=== PATIENT | male | born 1975 | race Caucasian/White ===

== ENCOUNTER 2018-05-05 10:35 | Inpatient (IN) | payer OTHER ==
[2018-05-05 12:30] LABS: ADD MAN DIFF? NO
[2018-05-05 12:35] LABS: WHITE BLOOD COUNT 5.2 10^3/ul (4.8-10.8)
[2018-05-05 12:35] LABS: ABNORMAL IP MESSAGE 1; BASOPHIL # 0.1 10^3/ul (0.0-0.1); EOSINOPHILS # 0.2 10^3/ul (0.0-0.5); EOSINOPHILS % 3.4 % (0.0-7.0); HEMATOCRIT 23.8 % (42.0-52.0); LYMPHOCYTES # 1.4 10^3/ul (0.8-2.9); LYMPHOCYTES % 27.6 % (15.0-51.0); MEAN CORPUSCULAR HEMOGLOBIN 20.7 pg (29.0-33.0); MEAN CORPUSCULAR HGB CONC 28.2 g/dl (32.0-37.0); MEAN CORPUSCULAR VOLUME 73.7 fl (82.0-101.0); MEAN PLATELET VOLUME 9.9 fl (7.4-10.4); MONOCYTE # 0.5 10^3/ul (0.3-0.9); MONOCYTES % 9.8 % (0.0-11.0); NEUTROPHILS % 57.6 % (39.0-77.0); PLATELET COUNT 287 10^3/UL (140-415); POSITIVE DIFF @See below; RED BLOOD COUNT 3.23 10^6/ul (4.70-6.10); RED CELL DISTRIBUTION WIDTH 17.4 % (11.5-14.5)
[2018-05-05 12:44] LABS: HEMOGLOBIN 6.7 g/dl (14.0-18.0)
[2018-05-05 12:45] LABS: PATH REVIEW? YES
[2018-05-05 12:52] LABS: PARTIAL THROMBOPLASTIN TIME 24.5 Sec (25.0-35.0)
[2018-05-05 12:55] LABS: INR 0.95; PROTIME 12.8 Sec (11.9-14.9)
[2018-05-05 12:57] LABS: ALANINE AMINOTRANSFERASE 94 IU/L (13-69); ALBUMIN 4.1 g/dl (3.3-4.9); ALBUMIN/GLOBULIN RATIO 1.32; ALKALINE PHOSPHATASE 79 IU/L (42-121); ANION GAP 14 (8-16); ASPARTATE AMINO TRANSFERASE 56 IU/L (15-46); BILIRUBIN,INDIRECT 0.3 mg/dl (0-1.1); BILIRUBIN,TOTAL 0.3 mg/dl (0.2-1.3); BLOOD UREA NITROGEN 19 mg/dl (7-20); CARBON DIOXIDE 27 mmol/L (21-31); CHLORIDE 104 mmol/L (97-110); CREATININE 0.96 mg/dl (0.61-1.24); GLUCOSE 116 mg/dl (70-220); POTASSIUM 3.7 mmol/L (3.5-5.1); SODIUM 141 mmol/L (135-144); TOTAL PROTEIN 7.2 g/dl (6.1-8.1)
[2018-05-05 13:08] LABS: TROPONIN-I < 0.010 ng/ml (0.000-0.120)
[2018-05-05 13:22] LABS: ANISOCYTOSIS 3+ (0-0); BAND NEUTROPHILS #M 0.1 10^3/ul (0.0-0.6); BAND NEUTROPHILS % (M) 2 % (0-4); BASOPHILS % (M) 1 % (0-2); EOSINOPHILS % (M) 4 % (0-7); GIANT THROMBO% (M) 3 % (0-0); HYPOCHROMASIA 1+ (0-0); LYMPHOCYTES #M 1.1 10^3/ul (0.8-2.9); LYMPHOCYTES % (M) 22 % (15-51); MICROCYTOSIS 3+ (0-0); MONOCYTE #M 0.4 10^3/ul (0.3-0.9); MONOCYTES % (M) 9 % (0-11); PLATELET ESTIMATE NORMAL; POIKILOCYTOSIS 2+ (0-0); POLYCHROMASIA 3+ (0-0); RBC MORPHOLOGY COMMENT @See below; SEG NEUT #M 3.2 10^3/ul (1.6-7.5); SEGMENTED NEUTROPHILS (M) % 62 % (39-77); SMUDGE%M 1 % (0-0); WBC MORPHOLOGY COMMENT @See below
[2018-05-05] MEDS: IOHEXOL 300MG/ML 150 ML BTL (13:30)
[2018-05-05] MEDS: SOD CHLORIDE 0.9% 100 ML (13:30)
[2018-05-05] MEDS ORDERED: ONDANSETRON 4 MG INJ IV (15:30)
[2018-05-05] MEDS ORDERED: ACETAMINOPHEN 325 MG TAB PO (15:30)
[2018-05-05 15:38] LABS: IMMEDIATE SPIN CROSSMATCH 1 2
[2018-05-05] MEDS: BISACODYL (EC) 5 MG TAB PO (15:47)
[2018-05-05] MEDS ORDERED: NACL 0.9% 3 ML SYG IV (16:00)
[2018-05-05 16:26] LABS: IRON 29 ug/dl (35-150)
[2018-05-05 16:35] LABS: % IRON SATURATION 5 % SAT (22-52); TOTAL IRON BINDING CAPACITY 589 ug/dl (241-421)
[2018-05-05 17:02] LABS: FERRITIN 5.6 ng/ml (17.9-464.0)
[2018-05-05] MEDS: POLYETHYLENE GLYCOL 3350 119 GM POWDER PO (23:03)
[2018-05-05] MEDS: MAGNESIUM CITRATE 300 ML BTL PO (23:03)
[2018-05-06 05:24] LABS: ADD MAN DIFF? NO
[2018-05-06 05:30] LABS: BASOPHIL # 0.1 10^3/ul (0.0-0.1); BASOPHILS % 1.2 % (0.0-2.0); EOSINOPHILS # 0.2 10^3/ul (0.0-0.5); EOSINOPHILS % 4.5 % (0.0-7.0); HEMATOCRIT 28.6 % (42.0-52.0); HEMOGLOBIN 8.4 g/dl (14.0-18.0); LYMPHOCYTES # 1.7 10^3/ul (0.8-2.9); LYMPHOCYTES % 33.9 % (15.0-51.0); MEAN CORPUSCULAR HEMOGLOBIN 22.6 pg (29.0-33.0); MEAN CORPUSCULAR HGB CONC 29.4 g/dl (32.0-37.0); MEAN CORPUSCULAR VOLUME 76.9 fl (82.0-101.0); MEAN PLATELET VOLUME 10.6 fl (7.4-10.4); MONOCYTE # 0.5 10^3/ul (0.3-0.9); MONOCYTES % 9.1 % (0.0-11.0); NEUTROPHIL # 2.6 10^3/ul (1.6-7.5); NEUTROPHILS % 50.9 % (39.0-77.0); PLATELET COUNT 292 10^3/UL (140-415); RED BLOOD COUNT 3.72 10^6/ul (4.70-6.10); RED CELL DISTRIBUTION WIDTH 19.2 % (11.5-14.5)
[2018-05-06 05:30] LABS: WHITE BLOOD COUNT 5.1 10^3/ul (4.8-10.8)
[2018-05-06 05:49] LABS: ALANINE AMINOTRANSFERASE 99 IU/L (13-69); ALBUMIN 3.7 g/dl (3.3-4.9); ALBUMIN/GLOBULIN RATIO 1.15; ALKALINE PHOSPHATASE 78 IU/L (42-121); ANION GAP 10 (8-16); ASPARTATE AMINO TRANSFERASE 72 IU/L (15-46); BILIRUBIN,INDIRECT 0.6 mg/dl (0-1.1); BILIRUBIN,TOTAL 0.6 mg/dl (0.2-1.3); BLOOD UREA NITROGEN 16 mg/dl (7-20); CALCIUM 8.9 mg/dl (8.4-10.2); CARBON DIOXIDE 28 mmol/L (21-31); CHLORIDE 106 mmol/L (97-110); CREATININE 0.83 mg/dl (0.61-1.24); GLUCOSE 86 mg/dl (70-220); POTASSIUM 4.1 mmol/L (3.5-5.1); SODIUM 140 mmol/L (135-144); TOTAL PROTEIN 6.9 g/dl (6.1-8.1)
[2018-05-06 05:53] LABS: CHOL/HDL RATIO 4.4 RATIO; HDL CHOLESTEROL 39 mg/dl (27-67); LDL CHOLESTEROL,CALCULATED 103 mg/dl; TRIGLYCERIDES 162 mg/dl (0-149)
[2018-05-06 05:53] LABS: CHOLESTEROL 174 mg/dl (100-200)
[2018-05-06] MEDS: PANTOPRAZOLE 40 MG INJ IV (05:56)
[2018-05-06] MEDS: POLYETHYLENE GLYCOL 3350 119 GM POWDER PO (05:56)
[2018-05-06 06:15] LABS: HEPATITIS B SURFACE ANTIGEN NEGATIVE (NEGATIVE)
[2018-05-06 06:33] LABS: HEPATITIS B SURFACE ANTIBODY NEGATIVE (NEGATIVE)
[2018-05-06 06:33] LABS: HEPATITIS C VIRAL ANTIBODY NEGATIVE (NEGATIVE)
[2018-05-06] MEDS ORDERED: PROPOFOL 200 MG INJ (07:00)
[2018-05-06 07:51] LABS: HEMOGLOBIN A1C 5.9 % (0-5.9)
[2018-05-06] MEDS: BISACODYL (EC) 5 MG TAB PO (08:59)
[2018-05-06] MEDS ORDERED: SOD FERRIC GLUC COMPLX 125 MG in SOD CHLORIDE 0.9% 100 ML IVPB (10:00)
[2018-05-06] MEDS: SOD FERRIC GLUC COMPLX 125 MG in SOD CHLORIDE 0.9% 100 ML IVPB (12:44)
[2018-05-06] MEDS ORDERED: LIDOCAINE 2% (SDV) 5 ML INJ (16:23)
[2018-05-06] MEDS ORDERED: PROPOFOL 40 ML (16:23)
[2018-05-06] MEDS: FENTAnyl 50 MCG/ML VIAL IV (18:00)
[2018-05-07] MEDS: PANTOPRAZOLE 40 MG INJ IV (05:37)
[2018-05-07] MEDS: ACETAMINOPHEN 325 MG TAB PO (06:32)
[2018-05-07] MEDS: SOD FERRIC GLUC COMPLX 125 MG in SOD CHLORIDE 0.9% 100 ML IVPB (12:46)
== END 2018-05-07 16:00 | disposition home or self-care (01) | DRG 394 ==
LOC: MS1 05-06 01:55 → E/R 10:35 → TEL 15:17
PROVIDERS: Pediatrics
PROC: 0DBP8ZX Excision of Rectum, Via Natural or Artificial Opening Endoscopic, Diagnostic (ICD-10-PCS; principal; 2018-05-06 15:30)
PROC: 0DBN8ZX Excision of Sigmoid Colon, Via Natural or Artificial Opening Endoscopic, Diagnostic (ICD-10-PCS; 2018-05-06 15:30)
PROC: 0W3P8ZZ Control Bleeding in Gastrointestinal Tract, Via Natural or Artificial Opening Endoscopic (ICD-10-PCS; 2018-05-06 15:30)
PROC: 30233N1 Transfusion of Nonautologous Red Blood Cells into Peripheral Vein, Percutaneous Approach (ICD-10-PCS; 2018-05-06 15:30)
DX: K64.8 Other hemorrhoids (principal); K62.5 Hemorrhage of anus and rectum; D50.0 Iron deficiency anemia secondary to blood loss (chronic); E66.9 Obesity, unspecified; Z68.36 Body mass index [BMI] 36.0-36.9, adult
CPT/HCPCS: 36415; 36430; 74177; 80053; 80061; 82728; 83036; 83540; 84484; 85025; 85610; 85730; 86706; 86708; 86709; 86803; 86850; 86900; 86901; 86920; 87340; 88305; 93005; 99291-25

== ENCOUNTER 2018-05-08 20:52 | Emergency (ER) | payer OTHER ==
[2018-05-08] MEDS: SOD CHLORIDE 0.9% 1,000 ML IV (23:03)
[2018-05-08] MEDS: KETOROLAC 15 MG INJ IV (23:03)
== END 2018-05-09 01:04 | disposition home or self-care (01) ==
LOC: E/R 05-09 01:04
DX: L03.113 Cellulitis of right upper limb (principal); M79.601 Pain in right arm; I82.611 Acute embolism and thrombosis of superficial veins of right upper extremity; R40.2142 Coma scale, eyes open, spontaneous, at arrival to emergency department; R40.2252 Coma scale, best verbal response, oriented, at arrival to emergency department; R40.2362 Coma scale, best motor response, obeys commands, at arrival to emergency department
CPT/HCPCS: 76536; 93971; 96361; 96374; 99285-25

== ENCOUNTER 2018-08-17 17:41 | Emergency (ER) | payer OTHER ==
[2018-08-17 18:39] LABS: ADD MAN DIFF? NO
[2018-08-17 18:41] LABS: BASOPHILS % 0.5 % (0.0-2.0); EOSINOPHILS # 0.1 10^3/ul (0.0-0.5); EOSINOPHILS % 0.7 % (0.0-7.0); HEMOGLOBIN 16.5 g/dl (14.0-18.0); LYMPHOCYTES # 2.2 10^3/ul (0.8-2.9); LYMPHOCYTES % 25.5 % (15.0-51.0); MEAN CORPUSCULAR HEMOGLOBIN 29.3 pg (29.0-33.0); MEAN CORPUSCULAR HGB CONC 34.4 g/dl (32.0-37.0); MEAN CORPUSCULAR VOLUME 85.3 fl (82.0-101.0); MEAN PLATELET VOLUME 9.3 fl (7.4-10.4); MONOCYTE # 0.9 10^3/ul (0.3-0.9); MONOCYTES % 10.4 % (0.0-11.0); NEUTROPHIL # 5.3 10^3/ul (1.6-7.5); NEUTROPHILS % 62.7 % (39.0-77.0); PLATELET COUNT 240 10^3/UL (140-415); RED BLOOD COUNT 5.63 10^6/ul (4.70-6.10); RED CELL DISTRIBUTION WIDTH 14.4 % (11.5-14.5)
[2018-08-17 18:41] LABS: WHITE BLOOD COUNT 8.5 10^3/ul (4.8-10.8)
[2018-08-17] MEDS: ONDANSETRON 4 MG INJ IV (19:16)
[2018-08-17] MEDS: LABETALOL HCL 20MG INJ IV (19:16)
[2018-08-17] MEDS: HYDROCODONE/APAP (10/325) TAB PO (19:17)
[2018-08-17 19:19] LABS: ALANINE AMINOTRANSFERASE 51 IU/L (13-69); ALKALINE PHOSPHATASE 86 IU/L (42-121); ASPARTATE AMINO TRANSFERASE 52 IU/L (15-46); BILIRUBIN,INDIRECT 0.9 mg/dl (0-1.1); BILIRUBIN,TOTAL 0.9 mg/dl (0.2-1.3); LIPASE 65 U/L (23-300); TOTAL PROTEIN 7.7 g/dl (6.1-8.1)
[2018-08-17 19:20] LABS: ANION GAP 14 (5-13); BLOOD UREA NITROGEN 19 mg/dl (7-20); CALCIUM 9.5 mg/dl (8.4-10.2); CARBON DIOXIDE 26 mmol/L (21-31); CHLORIDE 100 mmol/L (97-110); CREATININE 0.99 mg/dl (0.61-1.24); Estimated GFR > 60 mL/min (>60); GLUCOSE 115 mg/dl (70-220); POTASSIUM 4.2 mmol/L (3.5-5.1); SODIUM 140 mmol/L (135-144)
[2018-08-17 19:31] LABS: TROPONIN-I < 0.012 ng/ml (0.000-0.120)
== END 2018-08-17 20:05 | disposition home or self-care (01) ==
LOC: E/R 17:41
DX: R07.9 Chest pain, unspecified (principal); I10 Essential (primary) hypertension
CPT/HCPCS: 36415; 71045; 80048; 80076; 83690; 84484; 85025; 93005; 96374; 96375; 99285-25

== ENCOUNTER 2019-01-18 20:34 | Emergency (ER) | payer OTHER ==
[2019-01-18 23:54] LABS: ADD MAN DIFF? NO
[2019-01-18 23:55] LABS: BASOPHIL # 0.1 10^3/ul (0.0-0.1); BASOPHILS % 0.8 % (0.0-2.0); EOSINOPHILS # 0.1 10^3/ul (0.0-0.5); EOSINOPHILS % 0.6 % (0.0-7.0); HEMATOCRIT 48.7 % (42.0-52.0); HEMOGLOBIN 16.6 g/dl (14.0-18.0); LYMPHOCYTES # 1.5 10^3/ul (0.8-2.9); LYMPHOCYTES % 19.2 % (15.0-51.0); MEAN CORPUSCULAR HEMOGLOBIN 31.4 pg (29.0-33.0); MEAN CORPUSCULAR HGB CONC 34.1 g/dl (32.0-37.0); MEAN CORPUSCULAR VOLUME 92.1 fl (82.0-101.0); MEAN PLATELET VOLUME 9.3 fl (7.4-10.4); MONOCYTE # 0.8 10^3/ul (0.3-0.9); MONOCYTES % 10.3 % (0.0-11.0); NEUTROPHIL # 5.3 10^3/ul (1.6-7.5); NEUTROPHILS % 68.7 % (39.0-77.0); PLATELET COUNT 283 10^3/UL (140-415); RED BLOOD COUNT 5.29 10^6/ul (4.70-6.10); RED CELL DISTRIBUTION WIDTH 12.5 % (11.5-14.5)
[2019-01-18 23:55] LABS: WHITE BLOOD COUNT 7.8 10^3/ul (4.8-10.8)
[2019-01-19 00:28] LABS: ALANINE AMINOTRANSFERASE 62 IU/L (13-69); ALBUMIN 4.8 g/dl (3.3-4.9); ALBUMIN/GLOBULIN RATIO 1.33; ALKALINE PHOSPHATASE 114 IU/L (42-121); ANION GAP 13 (5-13); ASPARTATE AMINO TRANSFERASE 45 IU/L (15-46); BILIRUBIN,INDIRECT 0.9 mg/dl (0-1.1); BILIRUBIN,TOTAL 0.9 mg/dl (0.2-1.3); BLOOD UREA NITROGEN 15 mg/dl (7-20); CARBON DIOXIDE 25 mmol/L (21-31); CHLORIDE 102 mmol/L (97-110); CREATININE 0.74 mg/dl (0.61-1.24); Estimated GFR > 60 mL/min (>60); GLUCOSE 100 mg/dl (70-220); POTASSIUM 3.9 mmol/L (3.5-5.1); SODIUM 140 mmol/L (135-144); TOTAL PROTEIN 8.4 g/dl (6.1-8.1)
[2019-01-19 00:37] LABS: B-TYPE NATRIURETIC PEPTIDE 26 PG/ML (0-125); TROPONIN-I < 0.012 ng/ml (0.000-0.120)
[2019-01-19] MEDS: ASPIRIN 81 MG TAB PO ×2 (01:29→10:33)
[2019-01-19] MEDS: morphine 4 MG/ML VIAL IV (01:29)
[2019-01-19] MEDS: ONDANSETRON 4 MG INJ IV (01:29)
[2019-01-19 06:30] LABS: CREATINE KINASE 205 IU/L (23-200)
[2019-01-19 06:36] LABS: CK INDEX 0.6; TROPONIN-I < 0.012 ng/ml (0.000-0.120)
[2019-01-19] MEDS ORDERED: NITROGLYCERIN (SL) 0.4 MG TAB SL (07:00)
[2019-01-19] MEDS ORDERED: NACL 0.9% 3 ML SYG IV (07:00)
[2019-01-19] MEDS ORDERED: ALBUTEROL/IPRATROPIUM (NEB) 3 ML AMP HHN (07:00)
[2019-01-19] MEDS ORDERED: ONDANSETRON 4 MG INJ IV (07:00)
[2019-01-19] MEDS: ACETAMINOPHEN 325 MG TAB PO (07:33)
[2019-01-19 07:48] LABS: ADD MAN DIFF? NO
[2019-01-19 07:53] LABS: WHITE BLOOD COUNT 4.9 10^3/ul (4.8-10.8)
[2019-01-19 07:53] LABS: BASOPHILS % 0.8 % (0.0-2.0); EOSINOPHILS # 0.1 10^3/ul (0.0-0.5); EOSINOPHILS % 1.9 % (0.0-7.0); HEMATOCRIT 48.7 % (42.0-52.0); HEMOGLOBIN 16.5 g/dl (14.0-18.0); LYMPHOCYTES # 1.6 10^3/ul (0.8-2.9); LYMPHOCYTES % 33.7 % (15.0-51.0); MEAN CORPUSCULAR HEMOGLOBIN 31.4 pg (29.0-33.0); MEAN CORPUSCULAR HGB CONC 33.9 g/dl (32.0-37.0); MEAN CORPUSCULAR VOLUME 92.8 fl (82.0-101.0); MEAN PLATELET VOLUME 9.3 fl (7.4-10.4); MONOCYTE # 0.6 10^3/ul (0.3-0.9); MONOCYTES % 12.6 % (0.0-11.0); NEUTROPHIL # 2.5 10^3/ul (1.6-7.5); NEUTROPHILS % 50.4 % (39.0-77.0); PLATELET COUNT 251 10^3/UL (140-415); RED BLOOD COUNT 5.25 10^6/ul (4.70-6.10); RED CELL DISTRIBUTION WIDTH 12.4 % (11.5-14.5)
[2019-01-19 08:22] LABS: HEMOGLOBIN A1C 5.2 % (0-5.9)
[2019-01-19 08:23] LABS: ALANINE AMINOTRANSFERASE 62 IU/L (13-69); ALBUMIN 4.5 g/dl (3.3-4.9); ALBUMIN/GLOBULIN RATIO 1.36; ALKALINE PHOSPHATASE 97 IU/L (42-121); ANION GAP 10 (5-13); ASPARTATE AMINO TRANSFERASE 44 IU/L (15-46); BILIRUBIN,INDIRECT 1.2 mg/dl (0-1.1); BILIRUBIN,TOTAL 1.2 mg/dl (0.2-1.3); BLOOD UREA NITROGEN 15 mg/dl (7-20); CALCIUM 9.6 mg/dl (8.4-10.2); CARBON DIOXIDE 28 mmol/L (21-31); CHLORIDE 102 mmol/L (97-110); CHOL/HDL RATIO 2.5 RATIO; CHOLESTEROL 218 mg/dl (100-200); CREATININE 0.75 mg/dl (0.61-1.24); Estimated GFR > 60 mL/min (>60); GLUCOSE 97 mg/dl (70-220); HDL CHOLESTEROL 84 mg/dl (27-67); LDL CHOLESTEROL,CALCULATED 98 mg/dl; POTASSIUM 4.1 mmol/L (3.5-5.1); SODIUM 140 mmol/L (135-144); TOTAL PROTEIN 7.8 g/dl (6.1-8.1); TRIGLYCERIDES 181 mg/dl (0-149)
[2019-01-19] MEDS ORDERED: NON-FORMULARY/PATIENT OWN MED (Pantoprazole Sodium (Protonix) 40 MG) PO (09:00)
[2019-01-19] MEDS: PANTOPRAZOLE (EC) 40 MG TAB PO (09:00)
[2019-01-19] MEDS: LISINOPRIL 10 MG TAB PO (10:40)
[2019-01-19 12:20] LABS: CREATINE KINASE 169 IU/L (23-200)
[2019-01-19 12:32] LABS: CK INDEX 0.7; CK-MB 1.23 ng/ml (0.0-2.4); TROPONIN-I < 0.012 ng/ml (0.000-0.120)
== END 2019-01-19 14:41 | disposition home or self-care (01) ==
LOC: E/R 20:34
DX: R07.9 Chest pain, unspecified (principal); I10 Essential (primary) hypertension; R40.2142 Coma scale, eyes open, spontaneous, at arrival to emergency department; R40.2252 Coma scale, best verbal response, oriented, at arrival to emergency department; R40.2362 Coma scale, best motor response, obeys commands, at arrival to emergency department
CPT/HCPCS: 36415; 71045; 80053; 80061; 82550; 82553; 83036; 83880; 84443; 84484; 85025; 93005; 96374; 96375; 99285-25